=== PATIENT | female | born 1985 | race Caucasian/White ===

== ENCOUNTER → 2023-11-26 | Outpatient (CLI) | payer MEDICAID | LOC: RAD 12:18 | DX: M51.34 Other intervertebral disc degeneration, thoracic region (principal); M79.642 Pain in left hand; R06.02 Shortness of breath ==

== ENCOUNTER 2024-01-26 18:00 | Emergency (ER) | payer MEDICAID ==
[2024-01-26] MEDS ORDERED: Ketorolac 30 MG/ML VIAL IM ONE (19:06)
[2024-03-01 20:14] LABS: URINE APPEARANCE CLOUDY (CLEAR); URINE BILIRUBIN 1+ (NEGATIVE); URINE BLOOD 2+ (NEGATIVE); URINE COLOR YELLOW (YELLOW); URINE GLUCOSE NEGATIVE (NEGATIVE); URINE KETONE TRACE (NEGATIVE); URINE LEUKOCYTE ESTERASE 1+ (NEGATIVE); URINE NITRATE NEGATIVE (NEGATIVE); URINE PROTEIN(semi-quant) 1+ (NEGATIVE); URINE WBC 31-50 /hpf (0-3)
[2024-03-01 20:15] LABS: URINE MUCUS PRESENT (NOT PRESENT)
== END 2024-01-26 19:20 | disposition home or self-care (01) ==
LOC: ED 18:00
PROVIDERS: Nurse Practitioner
DX: N94.6 Dysmenorrhea, unspecified (principal)
CPT/HCPCS: J1885